=== PATIENT | female | born 1985 | race Caucasian/White ===

== ENCOUNTER 2021-07-13 11:23 | Emergency (ER) | payer OTHER ==
[~2021-07-13] VITALS: Ht 154.9 cm; Wt 55.9 kg
[~2021-07-13 11:23] MED LIST: CEPH-357 PO; NAPR-56 PO; NO HOME MEDS
[2021-07-13 11:25] VITALS: BP 101/60
[2021-07-13] MEDS ORDERED: PRED20TA PO (12:16)
[2021-07-13] MEDS ORDERED: CLOB15CR11 TOP (12:16)
[2021-07-13] MEDS ORDERED: clobetasol propionate ointment 15gm TP SCH (12:20)
[2021-07-13] MEDS ORDERED: clobetasol propionate ointment 15gm TP ONE (12:20)
--- NOTE | 2021-07-13 13:20 | NUR ---
Patient seen and assessed by provider.
== END 2021-07-13 13:26 | disposition home or self-care (01) ==
LOC: ER 11:24
DX: L23.7 Allergic contact dermatitis due to plants, except food (principal)
CPT/HCPCS: 99283